=== PATIENT | male | born 1995 | race Caucasian/White ===

== ENCOUNTER 2017-05-06 12:09 | Inpatient (IN) | payer OTHER ==
[~2017-05-06] VITALS: Ht 170.2 cm; Wt 66.5 kg
[2017-05-06] MEDS ORDERED: NALOXONE INJ 0.4 MG/1 ML VIAL (J2310) IV STA (12:28)
[2017-05-06] MEDS ORDERED: NS 500 ML IV ONE (12:30)
--- NOTE | 2017-05-06 12:55 | REP ---
Chest one-view HISTORY: Altered mental status Comparison: None The lungs are clear. The heart is normal in size. The pulmonary vasculature is normal in appearance. Impression: No acute disease. Signed by Stanley Evangelista MD 05/06/2017 12:46 P
--- NOTE | 2017-05-06 13:25 | REP ---
CT Head without contrast HISTORY: Altered mental status COMPARISON: None There is no intraparenchymal hemorrhage, acute infarct, mass or midline shift. The ventricular system is normal in appearance. There is no extra cerebral collection. There is no fracture. The visualized sinuses are clear. IMPRESSION: There is no intracranial lesion. Signed by Stanley Evangelista MD 05/06/2017 01:16 P
[2017-05-06 13:57] LABS: BASO % 0.1 % (0.0-1.0); EOS # 0.3 K/mm3 (0.0-0.50); EOS % 1.6 % (0.0-3.0); LARGE UNSTAINED CELL # 0.1 K/mm3 (0.0-0.4); LARGE UNSTAINED CELL % 0.6 % (0.0-4.0); LYMPH % 5.1 % (24.0-44.0); MEAN CORPUSCULAR HEMOGLOBIN 31.1 pg (27.0-33.0); MEAN CORPUSCULAR HGB CONC 34.4 g/dl (32.0-36.5); MEAN CORPUSCULAR VOLUME 90.4 fl (80.0-96.0); MONO # 1.1 K/mm3 (0.0-0.8); MONO % 5.8 % (0.0-5.0); NEUTROPHILS # 15.6 K/mm3 (1.8-7.7); NEUTROPHILS % 86.7 % (36.0-66.0); PLATELET COUNT, AUTOMATED 208 k/mm3 (150-450); RED CELL DISTRIBUTION WIDTH 12.1 % (11.5-14.5)
[2017-05-06 14:21] LABS: OSMOLALITY SERUM 295 MOSM/KG (275-295)
[2017-05-06 14:28] LABS: ALBUMIN 4.4 GM/DL (3.2-5.2); ALBUMIN/GLOBULIN RATIO 1.47 (1.00-1.93); ALKALINE PHOSPHATASE 78 U/L (45-117); ALT/SGPT 261 U/L (12-78); ANION GAP 6 MEQ/L (8-16); AST/SGOT 219 U/L (15-37); BILIRUBIN,DIRECT 0.1 MG/DL (0.0-0.2); BILIRUBIN,TOTAL 0.5 MG/DL (0.2-1.0); BLOOD UREA NITROGEN 22 MG/DL (7-18); CALCIUM LEVEL 8.6 MG/DL (8.5-10.1); CARBON DIOXIDE LEVEL 29 MEQ/L (21-32); CHLORIDE LEVEL 102 MEQ/L (98-107); GLUCOSE, FASTING 91 MG/DL (70-105); POTASSIUM SERUM 3.6 MEQ/L (3.5-5.1); SODIUM LEVEL 137 MEQ/L (136-145); TOTAL PROTEIN 7.4 GM/DL (6.4-8.2)
[2017-05-06 16:37] LABS: METHADONE URINE NEGATIVE (NEGATIVE)
[2017-05-06] MEDS ORDERED: SODIUM CHLORIDE 0.9% 1000 ML IV ONE (17:30)
[2017-05-06 17:48] LABS: ABG HCO3 27.3 MEQ/L (22.0-26.0); ABG PARTIAL PRESSURE CO2 40.9 mmHg (35.0-45.0); ABG STANDARD HCO3 27.1 MEQ/L (22.0-26.0); ABG TOTAL CO2 28.6 MEQ/L (22.0-29.0); ABG pH (ARTERIAL) 7.443 UNITS (7.350-7.450)
[2017-05-06 18:12] LABS: INR 1.17
[2017-05-06] MEDS ORDERED: ACETAMINOPHEN TAB 650MG DOSE (2X325MG) PO PRN (18:15)
[2017-05-06] MEDS ORDERED: ONDANSETRON 4MG/2ML VIAL (J2405) IV PRN (18:15)
--- NOTE | 2017-05-06 19:00 | REPUSA ---
Clinical history: hepatitis. Findings: The pancreas is limited in visualization secondary to overlying bowel gas, but appears melissa sly unremarkable. The liver demonstrates uniform echotexture and echogenicity, with no mass lesions. The gallbladder is unremarkable. The common bile duct measures 2 mm and is within normal limits. The right kidney measures 8.8 cm in length. There is no evidence of hydronephrosis or nephrolithiasis. Th ere is no ascites. Impression: Unremarkable ultrasound examination of the right upper quadrant.
--- NOTE | 2017-05-06 19:34 | ECGEPIP ---
Stationary ECG Study [facility] - ED Test Date: 2017-05-06 Pat Name: CARRIE MACEDO Department: Room: - Gender: M Flavor Maker: rn : 1995 Requested By: HÉCTOR Avila Order Number: [id number] Reading MD: Latanya Ojeda Measurements Intervals [place] Rate: 81 P: 41 TN: 140 QRS: 57 QRSD: 110 T: 23 QT: 331 QTc: 384 Interpretive Statements SINUS RHYTHM DIFFUSE ST ELEVATION - TO CONSIDER EARLY REPOLARIZATION, PERICARDITIS NO PRIOR ECG FOR COMPARISON Electronically Signed On 05-06-2017 19:34:04 EDT by Latanya Ojeda
[2017-05-06 20:40] VITALS: BP 120/69
[2017-05-06] MEDS: NS 1,000 ML IV SCH (21:02)
[2017-05-06 22:00] VITALS: BP 129/71
--- NOTE | 2017-05-06 22:08 | HPE ---
DATE OF ADMISSION: 05/06/2017 PRIMARY CARE PROVIDER: Deisy Steiner. CHIEF COMPLAINT: Confusion. 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 He is accompanied in the emergency room by his and his infant son. The patient's states that he went to bed early because he was not feeling well. This morning, the patient awoke this morning and fell out of bed, was unable to arise. She had heard a thud and went into the room and found him on the floor. She asked if he was okay and he said that he felt really weak and that she should call an ambulance. They presented to the emergency room. The patient does not remember those events. He does remember waking up on the stretcher, being taken out of his home and brought to the emergency room. As per report from the emergency department (ED) providers, he was quite confused and disoriented on presentation, tired, was not following directions initially. At the present time of my exam, he is awake, alert. He is oriented times three. He does follow commands but tells me that he could not possibly get out of bed and he is too weak to move and refuses much of my exam. He is confused about the details of earlier today that he can not recall but otherwise not confused. Denies chest pain, shortness of breath, fevers, chills, nausea, vomiting, or diarrhea. The patient though did test positive for opiates. He denies any opiate use or being aware have been in any contact or expose to any opiate products. He cusses during most of the discussion. PAST MEDICAL HISTORY: None HOME MEDICATIONS: None. ALLERGIES: No known drug allergies. SURGERIES: None. FAMILY HISTORY: The patient is not aware of. He does not keep in touch with any of his family. SOCIAL HISTORY: His lives with his and son. He rolls his own tobacco, smoking several a day , but could not quantify further. He drinks 4-5 alcoholic beverages when he binges , and he states he has not drinking every day for the last month or so. He is an active-duty soldier. REVIEW OF SYSTEMS: Negative other than in history of present illness (HPI). PHYSICAL EXAMINATION: VITAL SIGNS: Temperature 99.9, pulse 86, respiratory rate 18, blood pressure 104/54, oxygen saturation 97% on room air. GENERAL: He is a disheveled man lying on is side, sleeping peacefully when I enter the room, but easily aroused to verbal stimuli. He does not appear to be in acute distress, but he does appear lethargic. He has numerous tattoos. HEENT: Cranial nerves II through XII appear to be grossly intact. He has dry mucous membranes. No elevation of central venous pressure (CVP). CARDIOVASCULAR: S1, S2 regular. RESPIRATORY: Lungs clear. ABDOMEN: Benign. EXTREMITIES: No clubbing, cyanosis or edema. No injection griffith. Neurologic: Patient denies gait, or strength testing. Refuses neurologic exam as he is tired and does not want to get up or exert himself. LABORATORY DATA: WBC 18.0, hemoglobin 15.1, platelet count 208. Chemistry panel: Sodium 137, potassium 3.6, chloride 102, bicarbonate 29, BUN 22, creatinine 1.2. AST 219, ALT 261. TSH which is slightly low at 0.3. Toxicology was positive for opiates, although the patient denied using any of these. IMAGING: The patient did have a CT scan of his head, which revealed no intracranial lesion. He also had a chest x-ray which revealed no acute disease. ASSESSMENT AND PLAN: This is a 22-year-old man with lethargy, fatigue, and confusion, likely toxic metabolic encephalopathy secondary to opiate abuse. 1. Toxic metabolic encephalopathy, likely related to opiate abuse. However, he does have a leukocytosis, low-grade temperature and abnormalities in his liver function tests. As such, I will culture him up, check an ammonia level, check right upper quadrant ultrasound, check international normalized ratio (INR) to see the chronicity of his hepatic dysfunction, hepatitis panel. I will provide him with intravenous (IV) fluids. I will hold off on antibiotics at the present time as I do not have any clear source. I suspect that this is all secondary to opiate abuse as he presented confused and weak at this time it does appear to be resolving with supportive care. Would attempt testing of his neurologic status again tomorrow hopefully he is more agreeable with physical at that time. 2. Elevated blood urea nitrogen (BUN), likely related to some dehydration. Will provide him with IV fluids. 3. Mildly suppressed thyroid stimulating hormone (TSH), possibly related to acute medical illness. Recommend repeat followup with his provider through the [facility]. 4. Deep venous thrombosis (DVT) prophylaxis. Early ambulation. DISPOSITION: The patient is admitted to observation status on the medical/surgical floor to Dr. Moore's service. He will continue following the patient at 7 a.m. [facility]
[2017-05-07] VITALS (11 sets, daily range): BP systolic 96–122; BP diastolic 56–82
[2017-05-07] MEDS: NS 1,000 ML IV SCH ×3 (04:59→22:06)
[2017-05-07 06:20] LABS: MEAN CORPUSCULAR HEMOGLOBIN 31.1 pg (27.0-33.0); MEAN CORPUSCULAR HGB CONC 33.5 g/dl (32.0-36.5); MEAN CORPUSCULAR VOLUME 92.9 fl (80.0-96.0); RED CELL DISTRIBUTION WIDTH 11.9 % (11.5-14.5); WHITE BLOOD COUNT 10.7 K/mm3 (4.0-10.0)
[2017-05-07 06:27] LABS: ALBUMIN 3.6 GM/DL (3.2-5.2); ALBUMIN/GLOBULIN RATIO 1.38 (1.00-1.93); ALKALINE PHOSPHATASE 61 U/L (45-117); ALT/SGPT 174 U/L (12-78); ANION GAP 4 MEQ/L (8-16); AST/SGOT 106 U/L (15-37); BILIRUBIN,TOTAL 0.5 MG/DL (0.2-1.0); BLOOD UREA NITROGEN 14 MG/DL (7-18); CALCIUM LEVEL 8.3 MG/DL (8.5-10.1); CARBON DIOXIDE LEVEL 30 MEQ/L (21-32); CHLORIDE LEVEL 107 MEQ/L (98-107); CREATININE FOR GFR 1.07 MG/DL (0.70-1.30); GLUCOSE, FASTING 90 MG/DL (70-105); POTASSIUM SERUM 3.7 MEQ/L (3.5-5.1); SODIUM LEVEL 141 MEQ/L (136-145); TOTAL PROTEIN 6.2 GM/DL (6.4-8.2)
[2017-05-07 10:19] LABS: VITAMIN B12 LEVEL 616 PG/ML (247-911)
[2017-05-07 11:32] LABS: FERRITIN 157 NG/ML (26-388)
--- NOTE | 2017-05-07 12:10 | REP ---
MRA BRAIN WITHOUT CONTRAST: HISTORY: Encephalopathy. 3D [id number] MR angiography was performed at the level of the [place]. There is no aneurysm, arteriovenous malformation or atherosclerotic lesion. The major intracranial vessels are patent. The vertebral arteries are equal in size. IMPRESSION: Normal MRA brain. Signed by Stanley Evangelista MD 05/07/2017 12:59 P
--- NOTE | 2017-05-07 12:24 | REP ---
MRI BRAIN WITHOUT CONTRAST: HISTORY: Encephalopathy. COMPARISON: CT 05/06/2017. A punctate focus of increased signal intensity on diffusion and T2-weighted images is present in the right parietal lobe. This is slightly decreased in signal intensity on ADC images and is consistent with an acute infarction. A punctate focus of slight increased signal intensity on T2-weighted images is present in the left parietal lobe. This is isointense in signal intensity on T2-weighted images and is consistent with subacute infarction. There is no intraparenchymal hemorrhage, mass or midline shift. The ventricular system is normal in appearance. There is no extracerebral collection. Minimal mucosal thickening is present in the maxillary, ethmoid and right sphenoid sinuses. IMPRESSION: 1. Punctate acute right parietal lobe infarction. 2. Punctate subacute left parietal lobe infarction. Signed by Stanley Evangelista MD 05/07/2017 01:00 P
[2017-05-07] MEDS ORDERED: ATORVASTATIN 20 MG TAB PO ONE (14:00)
[2017-05-07] MEDS ORDERED: ASPIRIN 325 MG TAB PO ONE (14:00)
--- NOTE | 2017-05-07 14:29 | IPNPDOC ---
Text Note Date of Service The patient was seen on 05/07/17. NOTE Subjective: Patient states that he has frontal parietal headache, throbbing in nature, 4 out of 10, nonradiating, with no visual deficits. States he occasionally has headaches. However this headache is much worse. Also states he has trouble ambulating because of generalized weakness and unable to maintain his balance. Objective: Vitals: (see below) General: No acute distress, laying comfortably in bed. HEENT: Moist mucous membranes. Neck: No JVD or lymphadenopathy Cardiac: RRR, No murmurs Pulm: Clear to auscultation b/l. No wheezing, rhonchi Abd: NT/ND + BS Ext: No edema or cyanosis. Multiple tattoos. Neuro: Strength 5/5 BUE and BLE. CN 2-12 intact. F to N intact Negative pronator drift. Negative Babinki. Significant ataxia. Unable to test Romberg. Alert and oriented 3. Labs (see below) Images: CT Head 05/06/17 IMPRESSION: There is no intracranial lesion. CXR 05/06/17 Impression: No acute disease. MRI Brain 05/07/17 IMPRESSION: 1. Punctate acute right parietal lobe infarction. 2. Punctate subacute left parietal lobe infarction. MRA Brain 05/07/17 Normal MRA brain. Assessment/Plan 1. Acute b/l CVA, acute and subacute. ? Etiology, although may be embolic in nature. Started on ASA/Statin. Carotid U/S pending. Echo with bubble study. Will also likely need QUYNH. Hypercoag. study sent, although may need to be repeated outpatient and has he currently has an acute infarct, which may alter results. PT/OT/ST. Neuro checks every 4. Transfer to PCU. Neurology has been consulted. 2. NSTEMI - ?related to myocarditis versus Takotsubo. Denies any chest pain. Denies any IV drug use. EKG with ? pericarditis vs early repolarization. We'll trend troponins. Discussed with Dr. morin, we will hold off on anticoagulation and continue with aspirin/statin. Echocardiogram pending. 3. Encephalopathy- secondary to the above. 4. Transaminitis- likely secondary to the above trending down. Abdominal ultrasound with no significant abnormalities. 5. Tobacco abuse- counseled on cessation. 6. Alcohol abuse- states he has not drank alcohol for 3 weeks. Cessation counseling. DVT prophy: Lovenox VS,Fishbone, I+O VS, Fishbone, I+O Laboratory Tests 05/07/17 05:33 Red Blood Count 4.50, Mean Corpuscular Volume 92.9, Mean Corpuscular Hemoglobin 31.1, Mean Corpuscular Hemoglobin Concent 33.5, Red Cell Distribution Width 11.9 , Calcium Level 8.3 L, Aspartate Amino Transf (AST/SGOT) 106 H, Alanine Aminotransferase (ALT/SGPT) 174 H, Alkaline Phosphatase 61, Total Bilirubin 0.5 , Total Protein 6.2 L, Albumin 3.6 Vital Signs Date Time Temp Pulse Resp B/P (MAP) Pulse Ox O2 Delivery O2 Flow Rate FiO2 05/07/17 14:12 99.2 75 18 120/71 (87) 97 Room Air 05/07/17 13:19 96 I&O- Last 24 Hours up to 6 AM 05/07/17 06:00 Intake Total 2060 ml Output Total 1425 ml Balance 635 ml MAURA OBRIEN MD May 07, 2017 14:29
[2017-05-07 15:11] LABS: BASO # 0.1 K/mm3 (0.0-0.2); BASO % 0.7 % (0.0-1.0); EOS % 0.4 % (0.0-3.0); LARGE UNSTAINED CELL # 0.1 K/mm3 (0.0-0.4); LARGE UNSTAINED CELL % 1.3 % (0.0-4.0); LYMPH # 1.5 K/mm3 (1.5-6.5); LYMPH % 14.5 % (24.0-44.0); MEAN CORPUSCULAR HEMOGLOBIN 30.7 pg (27.0-33.0); MEAN CORPUSCULAR HGB CONC 33.7 g/dl (32.0-36.5); MEAN CORPUSCULAR VOLUME 91.2 fl (80.0-96.0); MONO # 0.6 K/mm3 (0.0-0.8); MONO % 6.7 % (0.0-5.0); NEUTROPHILS % 76.3 % (36.0-66.0); PLATELET COUNT, AUTOMATED 174 k/mm3 (150-450); WHITE BLOOD COUNT 9.2 K/mm3 (4.0-10.0)
[2017-05-07 15:22] LABS: INR 1.06
--- NOTE | 2017-05-07 15:38 | REP ---
Bilateral carotid artery duplex ultrasound: Peak flow velocity analysis: RIGHT LEFT ICA. Peak flow velocity cm/sec 76 78 ICA Diastolic flow velocity cm/sec 28 33 ICA/CCA Ratio 0.68 0.71 There is focal shallow atheromatous plaque in the carotid bulb on the right. No atheromatous plaque is identified otherwise. The peak flow velocities are normal. The findings indicate less than 50% narrowing bilaterally . There is no significant stenosis on the right on the left. There is antegrade flow in the vertebral arteries bilaterally. Impression: There is no significant stenosis on the right or the left. Signed by Donis Be MD 05/07/2017 03:29 P
[2017-05-07 15:44] LABS: CHOLESTEROL LEVEL 146 MG/DL (<200); TRIGLYCERIDES LEVEL 79 MG/DL (<150)
--- NOTE | 2017-05-07 18:43 | REP ---
Portable chest, two views: Comparison is 2016. The lung [place] are clear. The cardiac size is normal. The dora, mediastinum, and bony thorax are unremarkable. Impression: Negative portable chest. There is no interval change. Signed by Donis Be MD 05/07/2017 06:34 P
--- NOTE | 2017-05-07 19:18 | ECGEPIP ---
Stationary ECG Study [facility] Test Date: 2017-05-07 Pat Name: CARRIE MACEDO Department: Room: [place] [address] Gender: M Monologist: : 1995 Requested By: MAURA OBRIEN Order Number: [id number] Reading MD: Carlos S[place] Measurements Intervals [place] Rate: 55 P: 26 SD: 152 QRS: 59 QRSD: 109 T: 18 QT: 388 QTc: 373 Interpretive Statements SINUS BRADYCARDIA Normal for age Electronically Signed On 05-07-2017 19:18:38 EDT by Carlos S[place]
--- NOTE | 2017-05-07 22:10 | ECHO ---
DATE OF PROCEDURE: 05/07/2017 DATE OF : 1995 AGE: 22 REFERRING PROVIDER: Dr. Ulisses Moore PATIENT LOCATION: Room 3215 REASON FOR THE ECHOCARDIOGRAM: Cerebrovascular accident. 2D MEASUREMENTS: IVS: 1.0 cm LV: 4.7 cm LVPW: 1.0 cm LA: 2.9 cm Aorta: 2.7 cm IVC: 2.1 cm DOPPLER MEASUREMENTS: Peak velocity across the aortic valve: 1.4 m/s Peak velocity across the LVOT: 0.9 m/s Mitral E: 0.65, Mitral A: 0.61 with a ratio of 1.1 Maximum tricuspid valve velocity: 2.2 m/s 2D COMMENTS: 1. Normal left ventricular size, wall thickness and normal global left ventricular systolic function estimated at 60-65%. 2. Normal left atrium. The right atrium and the right ventricle appear to be normal in size. 3. There was a drop off noted at the level of the fossa ovalis of the atrial septum and also there was increased mobility consistent with interatrial septal aneurysm. 4. Normal aortic root. 5. No pericardial effusion. 6. The aortic valve, mitral valve, tricuspid valve, and pulmonic valve appear to be normal. The proximal pulmonary artery branches were not well visualized. 7. The inferior vena cava was mildly enlarged. DOPPLER: It detects trace to mild mitral regurgitation and trace to mild tricuspid regurgitation. IMPRESSION: 1. Normal global left ventricular systolic function. 2. Trace to mild mitral regurgitation. 3. Trace to mild tricuspid regurgitation. 4. Bubble study done with agitated normal saline revealed passage of bubbles from the right heart chambers to the left within the second or third beats consistent with intracardiac shunt. 5. Interatrial septal aneurysm with possible patent foramen ovale based on the bubble study. No intracardiac shunt detected by Doppler. In view of the patient's history, I strongly recommend a transesophageal echocardiogram and this will be discussed with Dr. Ron Denton. The case was discussed with Dr. Ulisses Moore. [facility] CENTERChacha
[2017-05-07 22:41] LABS: ERYTHROCYTE SEDIMENTATION RATE 4 mm/hr (0-15)
[2017-05-08] VITALS (10 sets, daily range): BP systolic 93–131; BP diastolic 54–89
[2017-05-08] MEDS: NS 1,000 ML IV SCH (04:27)
[2017-05-08 04:50] LABS: WHITE BLOOD COUNT 7.7 K/mm3 (4.0-10.0)
[2017-05-08 05:13] LABS: ALBUMIN 3.3 GM/DL (3.2-5.2); ALBUMIN/GLOBULIN RATIO 1.18 (1.00-1.93); ALKALINE PHOSPHATASE 53 U/L (45-117); ALT/SGPT 137 U/L (12-78); ANION GAP 6 MEQ/L (8-16); AST/SGOT 54 U/L (15-37); BILIRUBIN,TOTAL 0.6 MG/DL (0.2-1.0); BLOOD UREA NITROGEN 8 MG/DL (7-18); CALCIUM LEVEL 7.8 MG/DL (8.5-10.1); CARBON DIOXIDE LEVEL 26 MEQ/L (21-32); CHLORIDE LEVEL 110 MEQ/L (98-107); CREATININE FOR GFR 0.99 MG/DL (0.70-1.30); GLUCOSE, FASTING 91 MG/DL (70-105); SODIUM LEVEL 142 MEQ/L (136-145); TOTAL PROTEIN 6.1 GM/DL (6.4-8.2)
[2017-05-08] MEDS ORDERED: ONDA4VLL IV (08:13)
[2017-05-08] MEDS ORDERED: MAPA325T3 PO (08:13)
[2017-05-08] MEDS ORDERED: ATOR1TAB21 PO (08:13)
[2017-05-08] MEDS ORDERED: ASPI325T24 PO (08:13)
[2017-05-08] MEDS ORDERED: LOVE1INJ SC (08:13)
--- NOTE | 2017-05-08 08:15 | CR ---
DATE OF CONSULTATION: 05/08/2017 REQUESTING PROVIDER: Dr. Ulisses Moore REASON FOR CONSULTATION: Inability to ambulate. 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 Him and his state that over the last few weeks he has been feeling quite lethargic, sleeping a lot. The patient was awake, oriented. He demonstrated reasonable strength in bilateral arms and lower extremities but has difficulty getting out of bed and ambulating. His urine toxicology was positive for opiates, although the patient denies using any. The patient did have a head CT scan, which was read as normal. MRI of brain did however show an acute right parietal and subacute left parietal ischemic stroke. The patient was started on aspirin 325 mg daily. Initial EKG was suggestive of endocarditis. First set of troponins was significantly elevated at 4.97, suggesting possible myocarditis. The patient did have a echocardiogram with bubble study, which turned out positive for a PFO with intracardiac shunt showing agitated saline crossing the defect with the third beat. The patient initially had blood pressure in the 120 systolic. Today he was noted to have blood pressures in the low 100s. He himself denies any chest pain or shortness of breath but started to develop cough. He is not having any edema throughout the body. The patient is on 120 mL an hour of normal saline. The patient will be monitored for congestive heart failure. Cardiology is directly involved in his care at this point. He will be transferred from progressive care unit (PCU) to the intensive care unit (ICU) for closer monitoring. PAST MEDICAL HISTORY: None for HOME MEDICATIONS: None. ALLERGIES: None. FAMILY HISTORY: Noncontributory. SOCIAL HISTORY: The patient uses his own tobacco, smoking several times a day. Takes four to five alcoholic beverages when he binges. Otherwise, he states that he drinks one to two drinks after work most days. REVIEW OF SYSTEMS: 14 point review of systems was obtained and is negative except as per history of present illness. PHYSICAL EXAMINATION: Blood pressure 104/59, heart rate 73, respiratory rate is 18, temperature 99.2 degrees Fahrenheit, oxygenation 96% on room air. Current height 5 feet 7 inches and weight 84.4 kg. The patient is awake, alert, oriented to person, place, time. Speech, language comprehension and repetition are intact. Pupils are 3 mm round, reactive to light. Extraocular muscles are intact in all directions. Sensation V1, V2-V3 is intact to light touch. No facial asymmetry to activation. Palate elevates symmetrically. Tongue is midline. No weakness in sternocleidomastoids bilaterally. There is no pronator drift. Strength is diminished in the left triceps, left iliopsoas and tibialis anterior compared to the right CT demonstrates 5/5 strength. Sensory is intact to light touch, temperature and vibration throughout. Coordination: Normal [id number] without any signs of ataxia, dysmetria. Gait deferred. ASSESSMENT 1. Acute ischemic stroke of the right parietal lobe, subacute ischemic stroke of the left parietal lobe, likely embolic in nature with echocardiogram evidence of an intracardiac shunt with a patent foramen ovale. There is possibility of underlying myocarditis. PLAN: 1. Continue aspirin 325 mg daily. The echocardiogram does not reveal any evidence of thrombus to warrant anticoagulation. I would recommend ultrasound of lower extremities to evaluate for deep vein thrombosis (DVT). Hypercoagulable and vasculitic workup is pending, including factor V Leiden and prothrombin 2 gene mutation. Recommend continuation of statin therapy 40 mg of Lipitor daily. The patient may be [facility] to [facility] for possible PFO closure. Continue close monitoring for possible myocarditis and continue treatment for that as per cardiology. MR angiogram of the head, carotid ultrasound so far have read normal. Continue telemetry monitoring. Start physical therapy (PT) and occupational therapy (OT). History obtained from both the patient the patient's .
--- NOTE | 2017-05-08 08:17 | REP ---
Bilateral lower extremity deep vein duplex ultrasound: The deep veins demonstrate normal compression, normal Doppler color flow and normal Doppler waveforms with respiration augmentation from the popliteal veins to the common femoral veins bilaterally. Impression: There is no deep vein thrombus in the right lower extremity or left lower extremity. Signed by Donis Be MD 05/08/2017 08:08 A
[2017-05-08] MEDS ORDERED: ASPIRIN 81 MG ENTERIC TAB PO SCH (09:00)
[2017-05-08] MEDS ORDERED: ATORVASTATIN 20 MG TAB PO SCH (09:00)
[2017-05-08] MEDS ORDERED: ASPIRIN ENTERIC 325 MG TAB PO SCH (09:00)
[2017-05-08] MEDS ORDERED: ENOXAPARIN 40 MG/0.4 ML SYRINGE (J1650) SC SCH (09:00)
[2017-05-08] MEDS ORDERED: ASPIRIN 325 MG TAB PO SCH (09:00)
--- NOTE | 2017-05-08 09:06 | DSES ---
DATE OF ADMISSION: 05/06/2017 DATE OF DISCHARGE: 05/08/2017 SPECIALISTS INVOLVED IN CARE: Dr. Ludwin Luis Dorian No complications of his stay. No procedures performed during his stay. DISCHARGE DIAGNOSES: Acute bilateral cerebrovascular accident (CVA). Subacute cerebrovascular accident (CVA). Patient foramen ovale. Non-ST elevation myocardial infarction. Encephalopathy, metabolic. Transaminitis. Tobacco use. Alcohol abuse. Possible opiate abuse suspected at presentation. Dehydration. Mildly suppressed TSH. 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 He was brought to the hospital for evaluation. He had a toxicology screen that showed opiates with no known history of opiate use. He was admitted to the hospitalist service. Further workup included MRI/MRA of the brain. MRA of the brain was within normal limits. MRI of the brain showed punctate acute right parietal lobe infarct. A punctate subacute left parietal lobe infarct. Carotid artery ultrasound was unremarkable. The patient went on to be seen by cardiology and neurology. Transthoracic echocardiogram showed intracardiac shunt with bubble study with right to left shunting. During the course of his stay, he was noted to have elevated Troponins with a high of 4.97 with initially elevated CK and CK-MB fraction. After further review with consultants, my colleague Dr. Sosa initiated transfer over last evening. At this point, the patient has been accepted to [facility] by Dr. Theodore. The plan is to transport him there this morning. Pending at the time of discharge are the results of a lower extremity Doppler. I will continue current medications at the time of discharge which include: - atorvastatin 40 mg daily - Lovenox 40 mg subcu daily - aspirin 325 mg every morning - he is currently IV fluids - Tylenol as needed - Zofran as needed He has not needed Tylenol or Zofran. I have asked that all images be sent along with the patient on CT. Upon discharge, the patient should followup with [facility] [place].
[2017-05-15 00:10] LABS: PROTEIN C ANTIGEN 105 % (60-150); PROTEIN S ANTIGEN FREE 93 % (57-157); PROTEIN S ANTIGEN TOTAL 87 % (60-150); SJOGREN'S ANTI SS-A <0.2 AI (0.0-0.9); SJOGREN'S ANTI SS-B <0.2 AI (0.0-0.9)
== END 2017-05-08 10:05 | disposition short-term general hospital (02) | DRG 64 ==
LOC: M ED 12:09 → OBSVTOIN 18:15 → M ED INP 18:15 → M MSPAV 20:40 → M PCU 05-07 14:06 → INTOOBSV 05-07 14:55 → OBSVTOIN 05-07 14:55 → M ICU 05-07 17:48
PROVIDERS: ADMIT Internal Medicine; ATTEND Internal Medicine
DX: I63.40 Cerebral infarction due to embolism of unspecified cerebral artery (principal); I21.4 Non-ST elevation (NSTEMI) myocardial infarction; Q21.1 Atrial septal defect; E86.0 Dehydration; F17.200 Nicotine dependence, unspecified, uncomplicated; F10.10 Alcohol abuse, uncomplicated; F11.10 Opioid abuse, uncomplicated; Z79.899 Other long term (current) drug therapy

== ENCOUNTER 2017-09-24 11:53 | Outpatient (RCR) | payer OTHER | END 2017-10-21 | LOC: M CR 11:53 | DX: Z51.89 Encounter for other specified aftercare (principal); Q21.1 Atrial septal defect | CPT/HCPCS: 93798 ==

== ENCOUNTER 2017-10-23 09:22 | Outpatient (RCR) | payer OTHER | END 2017-11-21 | LOC: M CR 09:22 | DX: Z51.89 Encounter for other specified aftercare (principal); Z87.74 Personal history of (corrected) congenital malformations of heart and circulatory system ==

== ENCOUNTER 2017-11-22 08:57 | Outpatient (RCR) | payer OTHER | END 2017-12-19 | LOC: M CR 08:57 | DX: Q21.1 Atrial septal defect (principal) | CPT/HCPCS: 93798 ==